=== PATIENT | female | born 1960 | race Caucasian/White ===

== ENCOUNTER 2022-01-11 18:25 | Emergency (ER) | payer BC ==
[2022-01-11] MEDS: Phenazopyridine 100 MG Tab PO ONE ×2 (18:55→19:22)
[2022-01-11] MEDS: Acetaminophen 500 MG Tab PO ONE (18:55)
[2022-01-11] MEDS: cefTRIAXone 1 GM Vial IM ONE (19:22)
[2022-01-11] MEDS: Lidocaine 1% 5 ML VIAL ONE (19:36)
== END 2022-01-11 19:30 | disposition home or self-care (01) ==
LOC: KA.ED 18:25
DX: N39.0 Urinary tract infection, site not specified (principal); Z88.8 Allergy status to other drugs, medicaments and biological substances
CPT/HCPCS: 81001; 96372; 99283; 99284; A9270-GY; J0696